=== PATIENT | female | born 1955 | race Caucasian/White ===

== ENCOUNTER → 2017-10-12 | Outpatient (CLI) | payer OTHER ==
[2017-10-12 12:59] LABS: BASO % 0.5 % (0.0-1.0); EOS # 0.2 10^3/uL (0.0-0.50); EOS % 2.4 % (0.0-3.0); IMMATURE GRANULOCYTE % 0.2 % (0-3.0); LYMPH # 1.6 10^3/uL (1.5-4.5); LYMPH % 26.1 % (24.0-44.0); MEAN CORPUSCULAR HEMOGLOBIN 30.4 pg (27.0-33.0); MEAN CORPUSCULAR HGB CONC 33.3 g/dl (32.0-36.5); MEAN CORPUSCULAR VOLUME 91.3 fl (80.0-96.0); MONO # 0.4 10^3/uL (0.0-0.8); MONO % 5.8 % (0.0-5.0); PLATELET COUNT, AUTOMATED 225 10^3/uL (150-450); RED BLOOD COUNT 4.27 10^6/uL (4.00-5.40); RED CELL DISTRIBUTION WIDTH 12.3 % (11.5-14.5); WHITE BLOOD COUNT 6.2 10^3/uL (4.0-10.0)
[2017-10-12 13:24] LABS: ANION GAP 5 MEQ/L (8-16); BLOOD UREA NITROGEN 17 MG/DL (7-18); CALCIUM LEVEL 8.6 MG/DL (8.8-10.2); CARBON DIOXIDE LEVEL 28 MEQ/L (21-32); CHLORIDE LEVEL 111 MEQ/L (98-107); GLOMERULAR FILTRATION RATE > 60.0 (>45); GLUCOSE, FASTING 91 MG/DL (70-100); POTASSIUM SERUM 4.2 MEQ/L (3.5-5.1); SODIUM LEVEL 144 MEQ/L (136-145)
== END ==
LOC: M LAB 12:00
DX: M20.11 Hallux valgus (acquired), right foot (principal)
CPT/HCPCS: 93005

== ENCOUNTER 2017-10-28 06:24 | Day surgery (SDC) | payer OTHER ==
[2017-10-28] MEDS ORDERED: LR 1,000 ML IV (06:45)
[2017-10-28] MEDS: ROPIvacaine 0.5% 30 ML INJECTION (J2795 PER 1MG) As Ordered (06:58)
[2017-10-28] MEDS ORDERED: LIDOCAINE 2% INJ 100 MG/5 ML SDV (FOR ANES.) As Ordered (07:19)
[2017-10-28] MEDS ORDERED: MIDAZOLAM INJ 2 MG/2 ML VIAL (J2250) As Ordered (07:19)
[2017-10-28] MEDS ORDERED: PROPOFOL 200 MG/20 ML VIAL As Ordered (07:19)
[2017-10-28] MEDS ORDERED: fentaNYL 100 MCG/2 ML INJECTION (J3010) As Ordered (07:19)
[2017-10-28] MEDS ORDERED: dexameTHASONE 4 MG/ML 1ML VIAL (J1100) As Ordered (08:02)
[2017-10-28] MEDS ORDERED: KETOROLAC 60 MG/2 ML VIAL (J1885) As Ordered (08:02)
[2017-10-28] MEDS ORDERED: ONDANSETRON 4MG/2ML VIAL (J2405) As Ordered (08:02)
[2017-10-28] MEDS: BACITRACIN PWD 50,000 UNITS VIAL As Ordered (08:03)
[2017-10-28] MEDS: dexameTHASONE 4 MG/ML 1ML VIAL (J1100) As Ordered (08:04)
[2017-10-28] MEDS: BUPIVACAINE HCL 0.5% 30 ML VIAL As Ordered (08:05)
[2017-10-28] MEDS: LIDOCAINE 2% MDV 20 ML VIAL As Ordered (08:05)
[2017-10-28] MEDS: NEOSPORIN GU IRRIG 20 ML VIAL As Ordered (08:06)
== END 2017-10-28 09:35 | disposition home or self-care (01) ==
LOC: M SDC 06:24
DX: M20.11 Hallux valgus (acquired), right foot (principal)
CPT/HCPCS: 28296

== ENCOUNTER 2024-05-31 06:27 | Day surgery (SDC) | payer MEDICARE, OTHER ==
[~2024-05-31] VITALS: Ht 162.6 cm; Wt 81.3 kg
[~2024-05-31 06:27] MED LIST: ALBU8.5H; OXYB-54 PO
[2024-05-31] MEDS ORDERED: propofoL 200 MG/20 ML VIAL As Ordered ONE (07:51)
[2024-05-31 08:26] VITALS: BP 131/71; TEMP 97.3; O2SAT 97
== END 2024-05-31 08:28 | disposition home or self-care (01) ==
LOC: M OPP 06:27
PROVIDERS: ATTEND Surgery
DX: Z12.11 Encounter for screening for malignant neoplasm of colon (principal); K64.8 Other hemorrhoids; K57.30 Diverticulosis of large intestine without perforation or abscess without bleeding; F10.10 Alcohol abuse, uncomplicated; Z79.899 Other long term (current) drug therapy